=== PATIENT | male | born 1960 | race Caucasian/White ===

== ENCOUNTER 2016-09-30 16:01 | Emergency (ER) | payer BC, OTHER ==
[2016-09-30] MEDS ORDERED: TETRACAINE HCL 150 DROP BTL EACHEYE ONE (16:13)
[2016-09-30] MEDS ORDERED: TETRACAINE HCL 150 DROP BTL ONE (16:15)
--- NOTE | 2016-09-30 16:24 | ERNOTE ---
ENT HPI Date of Service: 09/30/16 Time Seen by Provider: 09/30/16 16:12 Source: patient Exam Limitations: no limitations - Immun/Allergies/Home Medications Immunizations: IMMUNIZATION HX Immunizations Up to Date Yes History of Influenza Vaccine No Hx Pneumococcal Vaccination No Allergies/Adverse Reactions: Allergies Allergy/AdvReac Type Severity Reaction Status Date / Time morphine AdvReac Intermediate Muscle Pain Verified 09/30/16 16:13 Home Medications: HOME MEDICATIONS NK [No Home Medication] 09/30/16 [Last Taken Unknown] - History of Present Illness Narrative: Pt. comes in with c/o L eye pain after he touched it with a hot welding wire at work just prior to arrival. Pt. denies any vision changes but states that he is unsure of that as his eye bolton every time he opens his eye. Review of Systems - Review of Systems Constitutional: Present: no symptoms reported. Absent: recent illness, fever, chills, weakness, fatigue, malaise EYE: Present: eye pain, eye discharge, tearing. Absent: double vision, vision changes ENT: Present: no symptoms reported Respiratory: Present: no symptoms reported. Absent: shortness of breath, cough , wheezing Cardiology: Present: no symptoms reported. Absent: chest pain, palpitations, edema Gastrointestinal/Abdominal: Present: no symptoms reported. Absent: nausea, vomiting, diarrhea Genitourinary: Present: no symptoms reported Musculoskeletal: Present: no symptoms reported. Absent: back pain, neck pain, joint pain Skin: Present: no symptoms reported. Absent: rash, change in color Neurological: Present: no symptoms reported. Absent: headache, dizziness/light- headedness Endocrine: Present: no symptoms reported Hematologic/Lymphatic: Present: no symptoms reported All Other Systems: All systems neg except as marked - Patient's Past Medical History Patient History - Medical: No pertinent hx Patient History - Cardiac/Respiratory: Myocardial Infarction Patient History - Cancer: No Hx of Cancer Patient History - Surgical Procedures: Cholecystectomy, Other, Hernia Repair Patient History - Other: None - Social History Living Situations: home Abuse History: No History of abuse Psych History: No pertinent hx Smoking Status: Current every day smoker Have you smoked in the past 12 months: Yes Alcohol Use: none Drug Use: none - Immunizations Immunizations Up to Date: Yes Hx Pneumococcal Vaccination: No History of Influenza Vaccine: No Physical Exam - Physical Exam General Appearance: Present: wd/wn, alert, no apparent distress Eye Exam: PERRL: bilateral, EOMI: bilateral, Other: left - burn area with epithelial sloughing to the eye, flourescein exam with 1.2*0.4cm burn across cornea iris and conjunctiva Ears, Nose, Throat: Present: normal ENT inspection, tonsillar exudate Neck: Present: normal inspection, nontender. Absent: lymphadenopathy (R), lymphadenopathy (L) Respiratory: Present: no respiratory distress, normal breath sounds, no accessory muscle use, chest nontender, lungs clear Cardiovascular/Chest: Present: regular rate, rhythm, no murmur, normal peripheral pulses Gastrointestinal/Abdominal: Present: normal bowel sounds, nontender, nondistended, soft, no organomegaly Back Exam: Present: normal inspection Extremity Exam: Present: normal inspection Neurological Exam: Present: alert, oriented, normal mood/affect, no motor/ sensory deficits Skin Exam: Present: normal color, warm/dry. Absent: pallor, skin rash ED Progress - Date and Time Seen: Date and Time: 09/30/16 16:[address] Judi beasley she feels that pt. is most likely too ill to be treated by local opthamologists. Discussed with Dr Kaur in opthamology at [facility] and she feels that pt. needs immediate transfer but feels it is ok for boating safety officer to bring pt. - Vital Signs Patient's Vital Signs:: I have reviewed the patient's vital signs. Vital Signs: Vital Signs 09/30/16 16:08 Temperature 36.6 C Pulse Rate 99 Respiratory 16 Rate Blood Pressure 132/90 O2 Sat by Pulse 97 Oximetry - Progress/Reassessment Chief Complaint: Eye Injury/Trauma Departure Clinical Impression: Corneal burn Qualifiers: Encounter type: initial encounter Laterality: left Qualified Code(s): T26.12XA - Burn of cornea and conjunctival sac, left eye, initial encounter - Departure Disposition: [facility] Condition: Fair
--- OUTSIDE RECORDS SUMMARY | 2016-09-30 16:42 | XMS REPORT | Continuity of Care Document ---
:1960 Author Organization [facility] Address Unavailable [address] [address] Care Team Providers Name Role Phone Unavailable Primary Care Provider Unavailable Source Comments This disclosure is being made pursuant to the [facility] program and maynot contain all information available regarding this patient.[facility] Active Allergies and Adverse Reactions Not on File Current Medications Be aware that medications may not be up to date as of this document. Alwaysverify current medications with the patient. 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 Pulse 60 07/21/2011 9:20 AM PHARMACEUTICAL DEVELOPMENT TECHNICIAN Temperature 36.7 C (98 F) 07/21/2011 9:20 AM PHARMACEUTICAL DEVELOPMENT TECHNICIAN Respiratory Rate 16 07/21/2011 9:20 AM PHARMACEUTICAL DEVELOPMENT TECHNICIAN Height 1.727 m (5' 8") 07/21/2011 9:20 AM PHARMACEUTICAL DEVELOPMENT TECHNICIAN Weight 104.326 kg (230 lb) 07/21/2011 9:20 AM PHARMACEUTICAL DEVELOPMENT TECHNICIAN Body Mass Index 34.98 07/21/2011 9:20 AM PHARMACEUTICAL DEVELOPMENT TECHNICIAN Oxygen Saturation - - Plan of Care Health Maintenance Due Date Last Done Comments Retired-Pertussis Vaccine Adult 1981 Retired-Tetanus Vaccine Adult 1981 Colonoscopy 2012 Well Adult Visit 2012 Retired-INFLUENZA VACCINE 02/13/2015 Results from Last 3 Months Not on file
[2016-09-30] MEDS ORDERED: TETRACAINE HCL 150 DROP BTL LEFTEYE ONE (16:43)
--- OUTSIDE RECORDS SUMMARY | 2016-09-30 16:43 | XMS REPORT | Continuity of Care Document ---
:1960 Author Organization [facility] ([facility]) [place] [address] Phone [phone] Care Team Providers Name Role Phone Provider, No-Primary Care Primary Care Provider Unavailable Source Comments This disclosure is being made pursuant to the Care Everywhere program, applicable federal and state laws, and may not contain all informaitonavailable regarding this patient.[facility] ([facility]) Active Allergies and Adverse Reactions Allergen Noted Date Severity Reactions Comments Morphine 06/22/2012 Unknown Current Medications Prescription Sig. Disp. Refills Start Date End Date Status aspirin 325 mg tablet Take 325 mg by mouth Active daily. 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 Pulse 69 06/22/2012 7:24 AM ADVERTISING PRODUCTION MANAGER Temperature 35.7 C (96.3 F) 06/22/2012 7:24 AM ADVERTISING PRODUCTION MANAGER Respiratory Rate 16 06/22/2012 7:24 AM ADVERTISING PRODUCTION MANAGER Height - - Weight - - Body Mass Index - - Oxygen Saturation 99% 06/22/2012 7:24 AM ADVERTISING PRODUCTION MANAGER Plan of Care Health Maintenance Due Date Last Done Comments HCV Screening 1960 Hepatitis B Vaccine (1 of 3 - Primary Series) 1960 Tdap Vaccine 1973 Lipid Disorder Screening 1980 MMR Vaccine 1980 Td Vaccine 1980 Colonoscopy 03/19/2012 Prostate Cancer Screening 2012 Influenza Vaccine: Seasonal (#1) 01/14/2016 Results from Last 3 Months Not on file
[2016-09-30] MEDS ORDERED: oxyCODONE HCL/ACETAMINOPHEN 1 TAB TABLET PO ONE (17:00)
[2016-09-30 17:19] VITALS: BP 157/92
== END 2016-09-30 17:30 | disposition short-term general hospital (02) ==
LOC: ER 16:01
DX: T26.12XA Burn of cornea and conjunctival sac, left eye, initial encounter (principal); X08.8XXA Exposure to other specified smoke, fire and flames, initial encounter; Y93.89 Activity, other specified; Y92.89 Other specified places as the place of occurrence of the external cause; Y99.0 Civilian activity done for income or pay; F17.200 Nicotine dependence, unspecified, uncomplicated

== ENCOUNTER 2017-02-24 09:30 | Emergency (ER) | payer BC ==
[2017-02-24 10:01] LABS: Hemoglobin 15.7 gm/dL (13.5-18.0); Mean Cell Volume 86.6 fl (78-100); Mean Corpuscular Hemoglobin 30.9 pg (27-31); Mean Corpuscular Hgb Conc 35.7 g/dl (32-36); Mean Platelet Volume 10.3 fl (6.0-9.5); Neutrophil # 3.5 K/mm3 (1.3-6.0); Neutrophil % 52.7 % (42-75.0); Platelet Count 179 K/mm3 (150-450); Red Blood Count 5.08 M/mm3 (4.7-6.0); Red Cell Distribution Width 12.5 % (11.5-14.0); White Blood Count 6.6 K/mm3 (4.0-10.5)
[2017-02-24 10:03] LABS: Urine Bilirubin Negative (NEGATIVE); Urine Blood Negative /ul (NEGATIVE); Urine Ketone Negative (NEGATIVE); Urine Nitrite Negative (NEGATIVE); Urine Protein Negative (NEGATIVE); Urine Specific Gravity <=1.005 SP.GR. (1.005-1.030); Urine Urobilinogen Normal (NORMAL); Urine pH 5.5 pH (5.0-7.0)
[2017-02-24 10:10] LABS: Urine Appearance Clear; Urine Color Yellow
[2017-02-24 10:11] LABS: Urine Bacteria None Seen; Urine RBC None Seen /hpf (0-5); Urine WBC None Seen /hpf (0-5)
[2017-02-24 10:23] LABS: Albumin * 3.9 gm/dl (3.4-5.0); Anion Gap 13.1 mmol/L (6.8-13.8); BUN/Creatinine Ratio 12.5 (9.0-21.6); Bilirubin, Total 0.2 mg/dL (0.0-1.1); Calcium * 9.2 mg/dL (7.9-10.9); Carbon Dioxide 25.2 mmol/L (24-32.6); Potassium 4.3 mmol/L (3.4-4.6); Total Protein 7.5 gm/dL (6.2-8.2)
[2017-02-24] MEDS ORDERED: DIATRIZOATE MEGLUMINE, SODIUM 30 ML BTL ONE (11:15)
--- NOTE | 2017-02-24 11:32 | ERNOTE ---
Abdominal HPI - Narrative Date of Service: 02/24/17 - General Chief Complaint: Abdominal Pain Time Seen by Provider: 02/24/17 10:46 Source: patient Exam Limitations: no limitations - Immun/Allergies/Home Medications Immunizatons: IMMUNIZATION HX Immunizations Up to Date Yes History of Influenza Vaccine No Hx Pneumococcal Vaccination Yes Allergies/Adverse Reactions: Allergies morphine Adverse Reaction (Intermediate, Verified 09/30/16 16:13) Muscle Pain Home Medications: HOME MEDICATIONS NK [No Home Medication] 09/30/16 [Last Taken Unknown] - History of Present Illness Narrative: Pt. comes in with c/o LLQ pain for three weeks and LUQ pain for three days. Pt. states that his PCP put him on abx two weeks ago for diverticulitis and colitis and since had diarrhea. Pt. states that he does not like any pain medications so he has taken any pain medications but states that when he hurts his body sleeps more so that is how he has been treating the pain. Pt. denies any SOB, CP, but does state that he has nausea as well. Pt. denies any alleviating factors but states that movement exacerbates the pain. Review of Systems - Review of Systems Constitutional: Present: fatigue. Absent: recent illness, fever, chills, weakness, malaise EYE: Present: no symptoms reported ENT: Present: no symptoms reported Respiratory: Present: no symptoms reported. Absent: shortness of breath, cough , wheezing Cardiology: Present: no symptoms reported. Absent: chest pain, palpitations, edema Gastrointestinal/Abdominal: Present: nausea, diarrhea, abdominal pain Genitourinary: Present: no symptoms reported. Absent: frequency, decreased urinary output Musculoskeletal: Present: no symptoms reported. Absent: back pain, joint pain Skin: Present: no symptoms reported. Absent: rash Neurological: Present: no symptoms reported. Absent: headache, dizziness/light- headedness, numbness, tingling All Other Systems: All systems neg except as marked - Patient's Past Medical History Patient History - Medical: No pertinent hx Patient History - Cardiac/Respiratory: Myocardial Infarction Patient History - Cancer: No Hx of Cancer Patient History - Surgical Procedures: Cholecystectomy, Other, Hernia Repair Patient History - Other: None - Social History Living Situations: spouse Abuse History: No History of abuse Psych History: No pertinent hx Smoking Status: Current every day smoker Have you smoked in the past 12 months: Yes Do you dip or chew tobacco: Yes Alcohol Use: none Drug Use: none - Immunizations Immunizations Up to Date: Yes Hx Pneumococcal Vaccination: Yes History of Influenza Vaccine: No Physical Exam - Physical Exam General Appearance: Present: wd/wn, alert, no apparent distress Head Exam: Present: normal inspection, no evidence of injury Eye Exam: Normal inspection: bilateral, PERRL: bilateral, EOMI: bilateral Ears, Nose, Throat: Present: normal except -, dry mucous membranes Neck: Present: normal inspection, nontender. Absent: lymphadenopathy (R), lymphadenopathy (L) Respiratory: Present: no respiratory distress, normal breath sounds, no accessory muscle use, chest nontender, lungs clear Cardiovascular/Chest: Present: regular rate, rhythm, no murmur, normal peripheral pulses Gastrointestinal/Abdominal: Present: normal bowel sounds, tenderness - LUQ LLQ, distended, rebound. Absent: guarding, McBurney sign, Psoas sign, hernia Back Exam: Present: normal inspection, normal range of motion, no CVA tenderness , no vertebral tenderness Extremity Exam: Present: normal inspection, non-tender, normal range of motion, no edema Neurological Exam: Present: alert, oriented, normal mood/affect, no motor/ sensory deficits, trashman II-XII nml as tested, normal cerebellar test Skin Exam: Present: normal color, warm/dry. Absent: pallor, skin rash ED Progress - Date and Time Seen: Date and Time: 02/24/17 11:[address] Pinzon and as symptoms have increased to involve that LUQ and his amylase and lipase have increased and his abd shows signs of acute colitis of the sigmoid and pt. is acutely tender with rebound of his LUQ and LLQ that he needs a repeat abdominal CT. Pt. refusing pain medications at this time however he appears in severe pain. [address] Montelongo and he does not feel that this is something that he can treat. Discussed wtih Dr Broussard at [facility] and he feels that pt. needs higher level of than he can provide. 02/24/17 14:52 Called [place] [facility] call transfer line and sat on hold for 5 minutes waiting on hold then awaiting call back for another 10 minutes 02/24/17 15:[address] Braun vascular surgeon at [facility] and he feels that pt. needs emergent transfer to [facility] 02/24/17 15:[address] Eli at [facility] ED and he accepts transfer. - Results and Orders Patient's Lab Results:: I have reviewed the patient's lab results. - Vital Signs Patient's Vital Signs:: I have reviewed the patient's vital signs. Vital Signs: Vital Signs 02/24/17 02/24/17 09:46 10:57 Temperature 37.0 C Pulse Rate 58 L 57 L Respiratory 18 15 Rate Blood Pressure 134/85 130/84 O2 Sat by Pulse 96 97 Oximetry - X-Ray X-Ray #1 X-Ray: abdomen Interpretation: Reviewed by me X-ray Comments: Abdomen Flat W/ Upright *: No subdiaphragmatic free air. Surgical clips in the right upper quadrant likely from previous cholecystectomy. No abnormal dilation of large or small bowel. Mild stool retention suggestive of constipation. There is a single loop of bowel in the midabdomen, which appears to be probably a redundant segment of the sigmoid colon extending into the abdomen from the pelvis, with air-fluid level. No definite pathologic calcifications apparent. Osseous structures are intact. Degenerative changes of the thoracic and lumbar spine noted as visualized. IMPRESSION: 1. Nonobstructive bowel gas pattern, with air-fluid level within what appears to be the redundant segment of sigmoid colon demonstrating air-fluid level. Correlate clinically for colitis. 2. Additional comments are as above. - CT/Ultrasound CT/Ultrasound Narrative: CT Abdomen/Pelvis W/C * ABDOMEN: Lungs: Somewhat hyperlucent lungs, suggestive of either acute or chronic bronchitis or reactive airways disease. Also consider possible emphysema/COPD. There is a small peripheral pneumatocele within the lingula. Visualized portions of the heart grossly unremarkable without significant enlargement or pericardial fluid. Liver: Enlarged, hypodense appearance suggestive of fatty infiltration of the liver. Gallbladder: Gallbladder appears to be surgically absent. Pancreas: The pancreas appears to be normal in appearance. No definite acute pancreatic inflammatory changes, or adjacent edema/stranding noted. There is no adjacent fluid collection. The opacification of the splenic vein within normal limits without evidence for thrombosis. Spleen: Longitudinal measurement of the spleen above normal limits measuring 14.5 cm. Adrenal glands: Unremarkable without focal finding. Kidneys: Normal appearance without focal mass or hydronephrosis. Aorta: Moderate amount of calcified atherosclerotic plaque noted throughout the aorta. Diameter of the infrarenal segment at the level of the inferior mesenteric artery origin is 1.6 cm. Axial images suggests at least mild to moderate stenosis of the origin of the superior mesenteric artery without definite signs of occlusion/thrombosis. Retroperitoneum: No pathologic size lymphadenopathy or mass within the retroperitoneum is seen. Stomach: Partially opacified stomach grossly unremarkable. Small bowel: The proximal small bowel segments in the left upper quadrant appears to be somewhat dilated, without definite signs of a transition point. There is some small bowel mesenteric vascular congestion suggested in the left upper quadrant. There is no definite signs of bowel obstruction, as contrast material given does pass through this segment of the small bowel into the distal small bowel and colonic segments. Mild bowel wall prominence of the terminal ileum (series 4 image 55) noted. Colon: Mild colonic bowel wall prominence of the descending and sigmoid colon which is probably artifactual from nondistention but consider possible colitis. There is no definite signs of diverticular outpouchings. There is no evidence for colonic obstruction. Normal caliber appendix seen. Appendix best seen on series 4 image [id number]. Abdominal wall: Unremarkable without focal mass or hernia. No evidence for intraperitoneal free air. PELVIS: Contrast-filled portions of the urinary bladder demonstrates no focal finding. No definite signs of pelvic lymphadenopathy or masses are noted. Series 4 image 76 demonstrates amorphous soft tissue density within the right inguinal canal region, just inside of the internal ring within the pelvis which may indicate surgical changes of previous hernia repair. This is stable. Correlate clinically with previous history of surgery. No evidence of free pelvic fluid noted. Bones: Osseous structures appear intact without obvious destructive changes. Bilateral L5 spondylolysis suggested. IMPRESSION: 1. No definite CT signs of acute pancreatitis. There is no evidence for complication such as abscess, pseudocyst, or splenic venous thrombosis. 2. Splenomegaly. 3. Bowel wall prominence/dilation of the proximal small bowel segments in the left side, with vascular congestion/edema as discussed above without definite signs of small bowel obstruction. There is also mild bowel wall prominence of the terminal ileum. Consider enteritis to include infection versus inflammatory bowel disease. 4. Equivocal bowel wall prominence of the descending and sigmoid colon, probably artifactual from nondistention but consider potential colitis. 5. There is no evidence for perforation or intra-abdominal/pelvic abscess. 6. Fatty infiltration of liver. 7. 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 Correlate clinically for intestinal angina. 8. Probable post surgical changes of right inguinal hernia repair. Correlate clinically. 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
[2017-02-24 15:29] VITALS: BP 135/81
== END 2017-02-24 16:19 | disposition short-term general hospital (02) ==
LOC: ER 09:30
DX: K55.1 Chronic vascular disorders of intestine (principal); F17.200 Nicotine dependence, unspecified, uncomplicated